=== PATIENT | female | born 1930 | race Caucasian/White ===

== ENCOUNTER → 2016-12-17 | Outpatient (CLI) | payer OTHER | LOC: FIMAGING 13:19 | PROVIDERS: ATTEND Obstetrics & Gynecology | DX: Z12.31 Encounter for screening mammogram for malignant neoplasm of breast (principal) | CPT/HCPCS: G0202 ==

== ENCOUNTER 2018-03-16 18:52 | Observation (INO) | payer OTHER ==
--- NOTE | 2018-03-16 19:17 | EDPHY ---
General Time Seen by Provider: 03/16/18 19:08 Narrative: CHIEF COMPLAINT: Fall, mandibular pain, knee injury HISTORY OF PRESENT ILLNESS: Patient presents with son at bedside with physician. She reports a mechanical fall just prior to arrival. She was walking across the street when she tripped , landing on her knees and her right mandible. She denies loss of consciousness or headache. She does have some mild right-sided mandibular pain and chin pain. She also has an abrasion to the right knee and some mild-to- moderate left knee pain at rest. The left knee and left fibular pain was severe enough that she was unable to ambulate at the scene, thus EMS was activated. She has no nausea or vomiting. No neck pain or stiffness. No visual disturbance. No chest, abdominal or back pain. No injuries to the upper extremities. No other associated complaints or modifying factors REVIEW OF SYSTEMS: Ten systems reviewed and are negative unless otherwise noted in the HPI PCP: Dr. Downey SPECIALISTS: [facility] PAST MEDICAL HISTORY: Hypothyroid from thyroidectomy PAST SURGICAL HISTORY: Thyroidectomy SOCIAL HISTORY: Never smoker. Occasional alcohol use. Lives independently at the [place]. No assistive devices FAMILY HISTORY: Noncontributory EXAMINATION General Appearance: Alert, no distress Head: normocephalic, atraumatic. No Bejarano sign. No raccoon eyes. No depression or hematoma Eyes: Bilateral arcus senilis. Pupils equal and round, no conjunctival pallor or injection ENT, Mouth: Mucous membranes moist. Mild right-sided mandibular and chin pain with a mild hematoma to the right side of the chin Neck: Normal inspection, supple, non-tender. No crepitus or deformity. Respiratory: Lungs are clear to auscultation. No wheezing, rhonchi or crackles Cardiovascular: Regular rate and rhythm. No murmur Gastrointestinal: Abdomen is soft and nontender Back: non-tender, no bony abnormalities Neurological: GCS 15. A&O, nonfocal, strength is symmetric in the upper lower extremities. Skin: Warm and dry, no rash. Superficial abrasion to the right anterior knee. No laceration or puncture. Superficial hematoma ecchymosis to the right side of the chin. Extremities: No tenderness of the upper extremities. Symmetric range of motion of both upper extremities. Lower extremity tenderness of the left lateral knee and left proximal fibula with tenderness palpation and with active range of motion. Range of motion lower extremities symmetric without any evidence of compartment syndrome with all soft compartments. Psychiatric: Mood and affect normal DIFFERENTIAL DIAGNOSES: Including but not limited to abrasion, sprain, strain, fracture, dislocation, mandibular injury, intracranial hemorrhage, closed head injury, concussion MDM: 7:15 p.m. Mechanical fall with closed head injury, right mandibular pain, left knee and fibular pain. She is awake alert no acute distress. She does not take any anticoagulants. Her son is a physician at bedside. He and I have discussed the imaging as has been ordered. She requires no IV placed for laboratory studies at this time. She is resting comfortably. 8:10 p.m. Notified by radiologist Dr. Riddle. Plain film of the knee has a questionable area of lucency in the proximal fibula/fibular neck. Recommend clinical correlation. I have re-evaluated the patient she does have point tenderness there, thus we discussed CT scan the area. The son and patient like to proceed with this. 8:35 p.m. Notified by radiologist Dr. Riddle. CT scans of the head, cervical spine and mandible are unremarkable for any acute findings. There are chronic changes as noted. 9:00 p.m. Patient re-evaluated. She is still complaining of pain left lower extremity. We have attempted to ambulate her and she is unable to bear weight on that leg. I will order ultrasound admit the patient for observation, PT OT evaluations and further care. 9:25 p.m. Case discussed with hospitalist Dr. Price. She will admit the patient to Dr. Rose. She is admitted stable condition with an ultrasound of the lower extremity pending. 10:00 p.m. Notified by radiologist Dr. Riddle. Negative DVT study left lower extremity. She is admitted in stable condition. SUPERVISION: Patient was independently examined, but I discussed the case with my secondary supervising physician Dr. Torres - Diagnostics Imaging Results: Imaging Impressions Cervical Spine CT 03/16/18 19:30 Impression: 1. No acute fracture or soft tissue swelling. 2. Moderate to severe multilevel degenerative disk disease. 3. If the patient has persistent pain or neurologic deficits, consider cervical spine MRI. Findings discussed with Emergency Department physician metal moulder's assistant, Anthony Zaidi PA-C on March 16, 2018 at [address] 03/16/18 19:30 Impression: Negative. No acute fracture. Specifically, no mandibular fracture or dislocation. Findings discussed with Emergency Department physician metal moulder's assistant, Antohny Zaidi PA-C on March 16, 2018 at [address] 03/16/18 19:30 Impression: 1. Negative. No acute fracture or intracranial hemorrhage. 2. Atrophy and white matter disease within normal limit for age. Findings discussed with Emergency Department physician metal moulder's assistant, Anthony Zaidi PA-C on March 16, 2018 at 2038 hours. Knee X-Ray 03/16/18 19:31 Impression: 1. Equivocal incomplete nondisplaced fibular neck fracture. 2. No tibial plateau fracture or effusion. 3. Mild osteoarthritis and chondrocalcinosis. Findings discussed with Emergency Department physician metal moulder's assistant, Anthony Zaidi PA-C on March 16, 2018 at 2008 hours. Tibia/Fibula X-Ray 03/16/18 19:31 Impression: Negative. No acute fracture. Extremity CT 03/16/18 20:15 Impression: Negative. No fibular neck or tibial plateau fracture. Findings conveyed to Emergency Department physician metal moulder's assistant, TRACI Barry on March 16, 2018 at 2044 hours. Extremity Venous Study 03/16/18 21:08 Impression: Negative. No deep venous thrombosis. Findings discussed with Emergency Department physician metal moulder's assistant, Anthony Zaidi at 03/16/2018 22:07. - History Smoking Status: Never smoked - Objective Vital Signs: Initial Vital Signs Temperature (C) 98.2 F 03/16/18 18:55 Heart Rate 77 03/16/18 18:55 Respiratory Rate 16 03/16/18 18:55 Blood Pressure 180/86 H 03/16/18 18:55 O2 Sat (%) 95 03/16/18 18:55 O2 Delivery Mode Room Air Allergies/Adverse Reactions: ciprofloxacin [From Cipro] Allergy (Intermediate, Verified 03/16/18 22:08) Hives Home Medications: Medication Instructions Recorded Calcium Polycarbophil [FIBERCON] 625 mg PO BID 03/16/18 DULoxetine [Cymbalta 30 MG (*)] 30 mg PO DAILY 03/16/18 Dorzolamide 2% [Trusopt 2% (*)] 1 drops EACHEYE BID@09,12 03/16/18 Glucosamine/Chondroitin 1 each PO DAILY 03/16/18 [Glucosamine/Chondroitin (*)] Levothyroxine [Synthroid 50 mcg 50 mcg PO DAILY06 03/16/18 (*)] Multivitamins [Multivitamin (*)] 1 each PO DAILY 03/16/18 Travoprost Z 0.004% [Travatan Z 1 drops EACHEYE DAILY 03/16/18 0.004% (*)] Medications Given: Discontinued Medications Ibuprofen (Motrin) 400 mg PO EDNOW ONE Stop: 03/16/18 21:54 Last Admin: 03/16/18 22:00 Dose: 400 mg Departure - Departure Disposition: [facility] Inpatient Acute Clinical Impression: Lower extremity pain, anterior Qualifiers: Laterality: left Qualified Code(s): M79.605 - Pain in left leg Fall from standing Qualifiers: Encounter type: initial encounter Qualified Code(s): W19.XXXA - Unspecified fall, initial encounter Condition: Good Referrals: Patient,NotPresent [Unknown] - As per Instructions
[2018-03-16] MEDS ORDERED: IBUPROFEN 200 MG TAB PO ONE (21:53)
[2018-03-16] MEDS ORDERED: ACETAMINOPHEN 325 MG TAB PO PRN (22:15)
[2018-03-16] MEDS ORDERED: ONDANSETRON 4 MG/2 ML VIAL IVP PRN (22:15)
[2018-03-16] MEDS ORDERED: ONDANSETRON DISINTEGRATING 4 MG TAB PO PRN (22:15)
[2018-03-16] MEDS: ACETAMINOPHEN 500 MG TAB PO PRN (23:39)
--- NOTE | 2018-03-17 00:30 | PDGENHP ---
History and Physical - Chief Complaint Fall - History of Present Illness 87 yo F w/ hypothyroidism presents after a mechanical fall. Patient's left leg was sore today after gardening all morning. Later in the day she dropped an item and reached down to get it. When she reached down she fell to the floor. Trauma evaluation in the ED was negative (CTH, CT face, CT LLE) aside from superficial abrasions. She was unable to ambulate and therefore was deemed unsafe to go home. She is being admitted for observation and PT/OT evaluations. History Information - Allergies/Home Medication List Allergies/Adverse Reactions: ciprofloxacin [From Cipro] Allergy (Intermediate, Verified 03/16/18 22:08) Hives Home Medications: Calcium Polycarbophil [FIBERCON] 625 mg PO BID 03/16/18 [Last Taken 03/16/18] DULoxetine [Cymbalta 30 MG (*)] 30 mg PO DAILY 03/16/18 [Last Taken 03/16/18] Dorzolamide 2% [Trusopt 2% (*)] 1 drops EACHEYE BID@,12 03/16/18 [Last Taken 03/16/18] Glucosamine/Chondroitin [Glucosamine/Chondroitin (*)] 1 each PO DAILY 03/16/18 [ Last Taken 03/16/18] Levothyroxine [Synthroid 50 mcg (*)] 50 mcg PO DAILY06 03/16/18 [Last Taken ] Multivitamins [Multivitamin (*)] 1 each PO DAILY 03/16/18 [Last Taken 03/14/18] Travoprost Z 0.004% [Travatan Z 0.004% (*)] 1 drops EACHEYE DAILY 03/16/18 [ Last Taken 03/16/18] I have personally reviewed and updated: family history, medical history - Past Medical History Additional medical history: Hypothyroid - Surgical History Additional surgical history: Asked, denies - Family History Additional family history: Asked, denies - Social History Smoking Status: Never smoked Review of Systems Review of Systems: ROS: 10pt was reviewed & negative except for what was stated in HPI & below Physical Exam Physical Exam: Temp Pulse Resp BP Pulse Ox 36.5 C 72 16 158/86 H 96 03/16/18 23:01 03/16/18 23:01 03/16/18 23:01 03/16/18 23:01 03/16/18 23:01 Constitutional: no apparent distress, appears nourished Eyes: PERRL, EOMI Ears, Nose, Mouth, Throat: moist mucous membranes, no oral mucosal ulcers Cardiovascular: regular rate and rhythym, systolic murmur Respiratory: no respiratory distress, clear to auscultation Gastrointestinal: normoactive bowel sounds, soft, non-tender abdomen Skin: warm, normal color, other (Abrasion R knee) Musculoskeletal: full muscle strength, no muscle tenderness Neurologic: AAOx3, CN II-XII Intact Psychiatric: interacting appropriately, not anxious Lab Data & Imaging Review Imaging Review: Imaging Impressions Cervical Spine CT 03/16/18 19:30 Impression: 1. No acute fracture or soft tissue swelling. 2. Moderate to severe multilevel degenerative disk disease. 3. If the patient has persistent pain or neurologic deficits, consider cervical spine MRI. Findings discussed with Emergency Department physician assistant broker, Anthony Zaidi PA-C on March 16, 2018 at [address] 03/16/18 19:30 Impression: Negative. No acute fracture. Specifically, no mandibular fracture or dislocation. Findings discussed with Emergency Department physician assistant broker, Anthony Zaidi PA-C on March 16, 2018 at [address] 03/16/18 19:30 Impression: 1. Negative. No acute fracture or intracranial hemorrhage. 2. Atrophy and white matter disease within normal limit for age. Findings discussed with Emergency Department physician assistant broker, Anthony Zaidi PA-C on March 16, 2018 at 2038 hours. Knee X-Ray 03/16/18 19:31 Impression: 1. Equivocal incomplete nondisplaced fibular neck fracture. 2. No tibial plateau fracture or effusion. 3. Mild osteoarthritis and chondrocalcinosis. Findings discussed with Emergency Department physician assistant broker, Anthony Zaidi PA-C on March 16, 2018 at 2008 hours. Tibia/Fibula X-Ray 03/16/18 19:31 Impression: Negative. No acute fracture. Extremity CT 03/16/18 20:15 Impression: Negative. No fibular neck or tibial plateau fracture. Findings conveyed to Emergency Department physician assistant brokerAnthony PA- C on March 16, 2018 at 2044 hours. Extremity Venous Study 03/16/18 21:08 Impression: Negative. No deep venous thrombosis. Findings discussed with Emergency Department physician assistant broker, Anthony Zaidi at 03/16/2018 22:07. Assessment & Plan Assessment: 87 yo F w/ hypothyroidism presents after mechanical fall. Plan: 1. Mechanical fall - With resultant L knee pain leading to inability to ambulate safely. Extensive trauma eval (CTH, CT face, CT LLE) negative for serious injury. - Admit for observation - Conservative pain management strategy - PT/OT evaluations 2. Hypothyroid - Continue LTX Diet - Regular Code - Full Ppx - SCDs Dispo - Admit under observation status
[2018-03-17] MEDS: oxyCODONE IR 5 MG TAB PO PRN ×2 (00:57→06:12)
[2018-03-17 04:49] LABS: PLATELET COUNT 231 10^3/uL (150-400)
[2018-03-17] MEDS: ACETAMINOPHEN 500 MG TAB PO PRN ×2 (12:13→20:29)
--- NOTE | 2018-03-17 15:52 | ASMTCMCOM ---
CM Note CM Note Notes: Pt has been admitted obs status after a fall at home. No fractures found. PT recommending home care. Pt lives independently with her at the [place]. Referral sent. CM will follow for d/c needs. Date Signed: 03/17/2018 03:51 PM Electronically Signed By:FERNANDO Tucker
--- NOTE | 2018-03-17 16:51 | HOSPPROG ---
Hospitalist Progress Note Assessment/Plan: The patient is an 78-year-old female with PMH hypothyroidism who was admitted for difficulty ambulating following a mechanical fall which resulted in left knee injury. ASSESSMENT/PLAN: Left knee pain Difficulty ambulating/acute debility Right knee abrasion Status post mechanical fall Generalized weakness Hypothyroidism -Pt unsafe to go home today. PT recommends another day of therapy and then consider letting pt go home with home care. Her ILF may be able to connect her w / 24hr home care for several days. -I have notified the patient and her son of this plan. -Continue home medication VTE prophylaxis: SCDs Code Status: Full code Status: Changing to inpatient for greater than 2 midnight stay. Disposition: Med surge with discharge anticipated in the next 1-2 days This patient is new to me. Reviewed patient's chart/records for this visit. ____ Subjective: Today the pt still has pain in L knee, but denies pain elsewhere. Objective: Vital Signs Temp Pulse Resp BP Pulse Ox 36.5 C 66 16 132/69 H 94 03/17/18 15:48 03/17/18 15:48 03/17/18 15:48 03/17/18 15:48 03/17/18 15:48 Laboratory Results 03/17/18 04:40 03/17/18 04:40 03/16/18 03/17/18 03/18/18 05:59 05:59 05:59 Intake Total 200 Output Total 550 Balance -350 General: The patient is a thin, elderly female who is alert and in no acute distress. HEENT: normocephalic, extraocular movements intact, conjunctivae clear, no lesions on face. Mucous membranes moist. Neck: trachea midline, no visible masses, no external lesions. CV: +S1/S2, RRR, no MRG. Resp: unlabored, CTAB no RRW. Abd: soft and nondistended. Musculoskeletal: Normal muscle tone and bulk. + left knee tenderness at patellar facets. Neuro: cranial nerves II XII grossly intact. Intact gross motor and sensory function. Psych: appropriate mood/affect. Skin: No pallor. Heme/lymph: No peripheral edema. ICD10 Worksheet Patient Problems: Problems Problem Status Onset Fall from standing Acute Lower extremity pain, anterior Acute
[2018-03-18] MEDS ORDERED: LEVOTHYROXINE 50 MCG TAB PO SCH (06:00)
--- NOTE | 2018-03-18 06:41 | PDMN ---
Medical Necessity Medical necessity: Pt meets INPT criteria per MD as of 03/17/18 (pt admitted for difficulty ambulating/acute debility following a mechanical fall with L knee injury, L knee pain, generalized weakness. Pt unsafe to go home; requiring another day of therapy; LOS >2 MN).
[2018-03-18 07:23] VITALS: BP 178/94
[2018-03-18] MEDS: DORZOLAMIDE/TIMOLOL 10 ML OPHT.BTL EACHEYE SCH ×3 (08:00→13:09)
[2018-03-18] MEDS ORDERED: TRAVOPROST Z 0.004% EACHEYE SCH (09:00)
[2018-03-18] MEDS ORDERED: DULoxetine 30 MG CAP PO SCH (09:00)
--- NOTE | 2018-03-18 11:34 | PDIAF ---
- Diagnosis Diagnosis: Fall, knee/leg pain, no fractures Code Status: Full Code - Medication Management Discharge Medications: Medications to Continue on Transfer Calcium Polycarbophil [FIBERCON] 625 mg PO BID 03/16/18 [Last Taken 03/16/18] DULoxetine [Cymbalta 30 MG (*)] 30 mg PO DAILY 03/16/18 [Last Taken 03/16/18] Dorzolamide 2% [Trusopt 2% (*)] 1 drops EACHEYE BID@09,12 03/16/18 [Last Taken 03/16/18] Glucosamine/Chondroitin [Glucosamine/Chondroitin (*)] 1 each PO DAILY 03/16/18 [ Last Taken 03/16/18] Levothyroxine [Synthroid 50 mcg (*)] 50 mcg PO DAILY06 03/16/18 [Last Taken ] Multivitamins [Multivitamin (*)] 1 each PO DAILY 03/16/18 [Last Taken 03/14/18] Travoprost Z 0.004% [Travatan Z 0.004% (*)] 1 drops EACHEYE DAILY 03/16/18 [ Last Taken 03/16/18] Acetaminophen [Tylenol ES 500 mg (*)] 1,000 mg PO TID PRN tab 03/18/18 [Last Taken Unknown] Lacquer Maker Antibiotics: NA Discharge Medications: Refer to the Discharge Home Medication list for PRN reason. PICC Care - Routine: N/A - Orders Services needed: Home Care, Registered Nurse, Physical Therapy Home Care Face to Face: I certify that this patient was under my care and that I had the required [id number] encounter meeting the encounter requirements on the discharge day. My findings support the fact that the patient is homebound as defined in Home Care Face to Face Continued: CMS Chapter 7 Medicare Benefits Manual 30.1.1 , The condition of the patient is such that there exists a normal inability to leave home and consequently, leaving home would require a considerable and taxing effort. Isolation Type: None Oxygen: NA Diet Recommendation: no restrictions on diet [place]: Not applicable - Follow Up Care Current Providers and Referrals: Patient,NotPresent [Unknown] - As per Instructions Reji Downey MD [Primary Care Provider] - follow up in 1 week
--- NOTE | 2018-03-18 13:40 | ASMTCMCOM ---
CM Note CM Note Notes: Chart reviewed. Discussed patient status with Dr. Klein. She is medically cleared to discharge back to the [place]. Unfortunately [employer] Insurance is difficult to find in network [facility]. The patient's son Tamie ([phone]) would also like a VETERINARIAN ASSISTANT. [facility] able to provide PT but no VETERINARIAN ASSISTANT. Spoke with patient's son Bobo and informed his about services he could hire to assist patient with personal hygiene Will provide them with the [facility] Blue Book for resources. CM available should other needs arise. Plan: Home with [facility]. Date Signed: 03/18/2018 01:39 PM Electronically Signed By:Ana Paula Rosario RN
--- NOTE | 2018-03-18 13:41 | ASMTLACE ---
MILLICENT Length of stay for Answers: 1 day current admission Acuity / Level of Answers: Yes Care: Did the patient have an inpatient admission? # of Emergency department Answers: 1-2 visits in the last 6 months Score: 5 Date Signed: 03/18/2018 01:40 PM Electronically Signed By:Ana Paula Rosario RN
[2018-03-18] MEDS: ACETAMINOPHEN 500 MG TAB PO PRN (13:56)
--- NOTE | 2018-03-18 17:22 | PDDCSUM ---
Discharge Summary Discharge Summary: DISCHARGE SUMMARY FOLLOW-UP ITEMS: Follow up with primary care provider DATE OF ADMISSION: 03/16/2018 DATE OF DISCHARGE: 03/18/2018 DISCHARGE DIAGNOSES: 1. Acute mechanical fall 2. Acute bilateral knee pain with osteoarthritis and generalized weakness CONSULTATIONS: None PROCEDURES / IMAGING: CT of the lower extremity demonstrating no evidence of acute fracture, ultrasound demonstrating no evidence of DVT CHIEF COMPLAINT: Acute leg pain and fall SUBJECTIVE: Patient is feeling well at time discharge, she is ambulating safely PHYSICAL EXAM ON DISCHARGE: Systolic blood pressure 130-180, heart rate 60 70, afebrile overnight, satting on room air, alert awake oriented x3, no apparent distress, pain level 0 10 in her bilateral lower extremities, no tenderness to palpation in the left calf, full range of motion left knee, no effusion LABS ON DISCHARGE: Hemoglobin 12.1, creatinine 0.7 HOSPITAL COURSE BY PROBLEM: Patient presented for acute mechanical fall in the setting of acute bilateral leg pain, left greater than right. Some of the patient's pain was secondary to trauma from her fall, as well as muscular pain secondary to prolonged seated position while the patient was performing gardening work. The patient underwent a trauma evaluation complete with x-ray and CT, which ultimately demonstrated no evidence of acute fracture. On reassessment on 03/17, the patient was unable to safely ambulate, and was continuing to experience lower extremity discomfort as well as generalized weakness, and the decision was made that the patient would have been unsafe for discharge back home, and ongoing physical in therapy work was required prior to discharge. On 03/18, the patient was ambulating safely, her pain had improved, and she was safe for discharge home. DISCHARGE MEDICATIONS: Please see official discharge medication reconciliation sheet in chart , continue home medications without any changes. DISCHARGE INSTRUCTIONS: Please follow up with primary care provider. TIME SPENT: Greater than 30 minutes were spent on direct patient care, as well as discharge planning and preparation.
--- NOTE | 2018-03-19 15:52 | ASDISCHSUM ---
Discharge Information Plan Status: Medically Cleared to Leave: Discharge Date:03/18/2018 03:12 PM CM D/C Disposition: ADT D/C Disposition:Home Health Service Projected Discharge Date:03/19/2018 11:00 AM Transportation at D/C: Discharge Delay Reason: Follow-Up Date:03/19/2018 11:00 AM Discharge Slot: Final Diagnosis: Placement Information Referral Type:*Home Health Care Services Referral ID:[id number] Provider Name:[facility] Address 1:[address] Phone Number: Address 2: Fax Number: City:[place] Selection Factors: State:[place] Patient Contact Information Contact Name:MICHAEL Relationship: Address:[address] Work Phone: City:[facility] Phone: [facility]/Zip Code:[place] [address] Email: Financial Information Financial Class:Medicare Advantage Plans Primary Plan Desc:[employer] MEDICARE ADV Primary Plan Number:[id number] Secondary Plan Desc: Secondary Plan Number: Assessment Information [facility] CM Progress Note CM Note CM Note Notes: Pt has been admitted obs status after a fall at home. No fractures found. PT recommending home care. Pt lives independently with her at the [place]. Referral sent. CM will follow for d/c needs. Date Signed: 03/17/2018 03:51 PM Electronically Signed By:FERNANDO Tucker LACE MILLICENT Length of stay for Answers: 1 day current admission Acuity / Level of Answers: Yes Care: Did the patient have an inpatient admission? # of Emergency department Answers: 1-2 visits in the last 6 months Score: 5 Date Signed: 03/18/2018 01:40 PM Electronically Signed By:Ana Paula Rosario RN [facility] CM Progress Note CM Note CM Note Notes: Chart reviewed. Discussed patient status with Dr. Klein. She is medically cleared to discharge back to the [place]. Unfortunately [employer] Insurance is difficult to find in [facility]. The patient's son Tamie ([phone]) would also like a ELEMENTARY SCHOOL DIRECTOR. [facility] able to provide PT but no ELEMENTARY SCHOOL DIRECTOR. Spoke with patient's son Bobo and informed his about services he could hire to assist patient with personal hygiene Will provide them with the [employer] Blue Book for resources. CM available should other needs arise. Plan: Home with [facility]. Date Signed: 03/18/2018 01:39 PM Electronically Signed By:Ana Paula Rosario RN Intervention Information
== END 2018-03-18 15:12 | disposition home health service (06) ==
LOC: EDUNIT# → INTOOBSV 21:29 → OBSVTOIN 21:29 → F1N 23:20
PROVIDERS: ADMIT Student in an Organized Health Care Education/Training Program; ATTEND Student in an Organized Health Care Education/Training Program
DX: M17.0 Bilateral primary osteoarthritis of knee (principal); R53.83 Other fatigue
CPT/HCPCS: 97116-GP; 97161-GP; 97165-GO; G0378; G8978-GP-CI; G8978-GP-CK; G8979-GP-CI; G8979-GP-CJ; G8980-GP-CI; G8987-GO-CI; G8988-GO-CI